=== PATIENT | male | born 1980 | race Caucasian/White ===

== ENCOUNTER → 2016-09-22 | Outpatient (CLI) | payer OTHER | LOC: FIMAGING 10:11 | PROVIDERS: ATTEND Physician Assistant | DX: M75.81 Other shoulder lesions, right shoulder (principal); M75.51 Bursitis of right shoulder; M75.21 Bicipital tendinitis, right shoulder ==

== ENCOUNTER 2017-12-08 10:33 | Emergency (ER) | payer OTHER ==
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
[2017-12-08 12:28] VITALS: BP 118/76
== END 2017-12-08 12:24 | disposition home or self-care (01) ==
DX: S62.636A Displaced fracture of distal phalanx of right little finger, initial encounter for closed fracture (principal); V18.4XXA Pedal cycle driver injured in noncollision transport accident in traffic accident, initial encounter; Y92.89 Other specified places as the place of occurrence of the external cause; Y99.8 Other external cause status; Y93.55 Activity, bike riding